=== PATIENT | male | born 1980 | race Caucasian/White ===

== ENCOUNTER 2017-04-02 10:01 | Emergency (ER) | payer BC ==
--- NOTE | 2017-04-02 10:07 | Emergency Department Record ---
History of Present Illness - General Chief complaint: Lower Extremity Pain Stated complaint: L FEMUR INJURY Time Seen by Provider: 04/02/17 10:03 Source: Patient Mode of Arrival: Ambulatory Limitations: No limitations - History of Present Illness Initial comments: 36 yo male presents with left leg pain. The original injury occurred on Monday. 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 He has had pain since then. He has been walking and working but the pain has not resolved. No numbness or tingling. No bruising. No significant swelling or hematoma. No other pain or injuries. He is not on any anti-coagulants. MD Complaint: Extremity pain -: Days(s) (5) Location: Left History of Same: No -: Yes Myalgia Radiation: Proximal, Distal Quality: Aching Consistency: Constant Improves with: Elevation, Immobilization Worsens with: Walking, Weight bearing Associated Symptoms: Denies other symptoms - Related Data Previous Rx's Medication Instructions Recorded Hydrocodone/Acetaminophen [[place] 1 each PO Q8H #10 tablet 04/02/17 5-325 Tablet] Allergies Allergy/AdvReac Type Severity Reaction Status Date / Time No Known Drug Allergies Allergy Verified 04/02/17 10:08 Review of Systems Constitutional: Denies: Chills, Fever, Malaise, Weakness Eyes: Denies: Eye discharge, Eye pain ENT: Denies: Congestion, Throat pain Respiratory: Denies: Cough Cardiovascular: Denies: Chest pain, Syncope Endocrine: Denies: Fatigue Gastrointestinal: Denies: Abdominal pain, Diarrhea, Nausea, Vomiting Genitourinary: Denies: Dysuria, Frequency, Hematuria, Urgency Musculoskeletal: Reports: As per HPI, Arthralgia, Myalgia. Denies: Back pain Skin: Reports: As per HPI Neurological: Denies: Confusion, Headache, Numbness, Tingling, Weakness Psychiatric: Denies: Anxiety Hematological/Lymphatic: Denies: Blood Clots, Easy bleeding, Easy bruising, Swollen glands Physical Exam - General General Appearance: Alert, Oriented x3, Cooperative, No acute distress Limitations: No limitations - Head Head exam: Atraumatic, Normocephalic, Normal inspection - Eye Eye exam: Normal appearance. negative: Conjunctival injection, Periorbital swelling, Scleral icterus - ENT ENT exam: Normal exam, Mucous membranes moist Ear exam: Normal external inspection Nasal Exam: Normal inspection Mouth exam: Normal external inspection - Neck Neck exam: Normal inspection - Respiratory Respiratory exam: Normal lung sounds bilaterally. negative: Respiratory distress - Cardiovascular Cardiovascular Exam: Regular rate, Normal rhythm, Normal heart sounds Peripheral Pulses: 2+: Dorsalis Pedis (L) (proximal femoral pulses +2) - GI/Abdominal GI/Abdominal exam: Soft. negative: Distended, Guarding, Tenderness - Rectal Rectal exam: Deferred - exam: Deferred - Extremities Extremities exam: Normal inspection, Full ROM, Normal capillary refill, Tenderness, Other (soft muscles proximal and distal to the injury, no signs of compartment syndrom with very soft and non tender thigh distal and proxial to the injury site. No medial thigh tenderness, no posterior thigh tenderness.). negative: Calf tenderness, Pedal edema Image of Full Body: 1 - normal inspection, no significant swelling or any bruising, he is tender mid lateral thigh, the muscles are soft, no firmness or hematoma, knee is non tender. His proximal thigh is completely non tender - Back Back exam: Reports: Normal inspection. Denies: CVA tenderness (R), CVA tenderness (L), Tenderness - Neurological Neurological exam: Alert, Oriented X3, Other (sensation to the thigh, knee, calf and foot fully intact). negative: Altered, Motor sensory deficit - Psychiatric Psychiatric exam: Normal affect, Normal mood - Skin Skin exam: Dry, Intact, Normal color, Warm Course - Reevaluation(s) Reevaluation #1: The patient was seen and examined. He has localized pain and tenderness. No sign of compartment syndrome with soft compartment proximal and distal. Full and intact distal pulse. Fully intact distal motor and sensory function. No outward signs of trauma. No swelling or bruising. 04/02/17 10:19 04/02/17 10:45 XR reviewed. Lateral STS. NO fracture or dislocation. 04/02/17 10:48 The patient was re-examines The muscle are very soft I discussed symptoms to monitor fo at homer. I expressed that I do no think he has compartment syndrome. I did discuss compartment syndrome with him. I explained that he could be transferred for additional testing and evaluation at this time if he is concerned. He declined. I did discussed at length that he should return or be seen at a hospital with orthopedics if the pain changes, increases or any new concerns. He has been trying to work the last 4 days with continued walking. I strongly recommended at least 2 days of non weight bearing to help in the healing. His PCP is Dr Santana. He will call Monday for follow up as well. Disposition Disposition: Discharge Clinical Impression: Contusion of thigh, left Qualifiers: Encounter type: initial encounter Qualified Code(s): S70.12XA - Contusion of left thigh, initial encounter Disposition: Home, Self-Care Condition: (1) Good Instructions: Contusion in Adults (ED) Additional Instructions: Rest the leg the next two days with minimal or no weight bearing No weight bearing until pain free Call Dr Santana tomorrow for follow up to recheck your injury Return immediately or be seen if the pain is worse, and swelling, weakness, numbness or tingling. Prescriptions: Hydrocodone/Acetaminophen [[place] 5-325 Tablet] 1 each PO Q8H #10 tablet Forms: Patient Portal Access Time of Disposition: 10:59 Quality - Quality Measures Quality Measures: N/A - Blood Pressure Screening Does Patient Have Any of the Following: No Blood Pressure Classification: Hypertensive Reading Systolic Measurement: 160 Diastolic Measurement: 101 Screening for High Blood Pressure: < Pre-Hypertensive BP, F/U Documented > [ [id number]] Pre-Hypertensive Follow-up Interventions: Referral to alternative/primary care provider.
[2017-04-02] MEDS ORDERED: HYDROCODONE/APAP 5/325MG TABLET PO ONE (10:16)
--- NOTE | 2017-04-03 10:03 | RADIOLOGY REPORT ---
EXAM: LEFT FEMUR HISTORY: LEFT UPPER THIGH PAIN STATUS POST INJURY FOUR DAYS AGO. CONTINUED PAIN AND SWELLING LATERALLY. TECHNIQUE: AP and lateral views of the left femur were obtained. Comparison: None. FINDINGS: The bones are intact. There is no acute fracture or dislocation. There is mild soft tissue swelling within the lateral aspect of the left upper thigh. IMPRESSION: 1. LATERAL SOFT TISSUE SWELLING. 2. NO ACUTE FRACTURE OR DISLOCATION. JOB NUMBER: [id number] MTDD
== END 2017-04-02 11:07 | disposition home or self-care (01) ==
LOC: ER 10:01
DX: S70.12XA Contusion of left thigh, initial encounter (principal); W22.8XXA Striking against or struck by other objects, initial encounter; Y93.K9 Activity, other involving animal care; Y92.79 Other farm location as the place of occurrence of the external cause
CPT/HCPCS: 99283; 99284